=== PATIENT | female | born 1960 | race Caucasian/White ===

== ENCOUNTER 2021-08-09 11:31 | Outpatient (CLI) | payer MEDICARE, MEDICAID, SELFPAY ==
--- NOTE | 2021-08-09 11:48 | MM_ITS ---
WS: [id number] BILATERAL DIGITAL SCREENING MAMMOGRAPHY WITH CAD CLINICAL INFORMATION: SCREENING HISTORY: Screening mammogram. Left breast tenderness. COMPARISON: November 24, 2018 TECHNIQUE: Bilateral CC and MLO views. FINDINGS: Bilateral breast implants appear intact and unchanged. Scattered fibroglandular densities bilaterally. No suspicious focal mass, asymmetry, calcifications, or architectural distortion. No evidence of malignancy. MM/[id number] IMPRESSION: BI-RADS: 2-Benign FOLLOW UP: 1 Year Follow-up Recommend return to annual screening mammography.
== END 2021-08-09 11:32 | disposition home or self-care (01) ==
LOC: RADSHAW 11:43
PROVIDERS: Visit Provider Nurse Practitioner Family
DX: Z12.31 Encounter for screening mammogram for malignant neoplasm of breast (principal)
CPT/HCPCS: 77067

== ENCOUNTER 2022-09-18 13:17 | Outpatient (CLI) | payer MEDICARE, MEDICAID, SELFPAY ==
--- NOTE | 2022-09-18 13:27 | MM_ITS ---
WS: [id number] BILATERAL 3D TOMOSYNTHESIS DIGITAL SCREENING MAMMOGRAPHY WITH CAD CLINICAL INFORMATION: SCREENING HISTORY: Screening mammogram. No current complaints. COMPARISON: August 09, 2021 TECHNIQUE: Bilateral CC and MLO views. FINDINGS: Bilateral breast implants appear intact and unchanged Scattered fibroglandular densities bilaterally. No suspicious focal mass, asymmetry, calcifications, or architectural distortion. No evidence of malignancy. A few incidental punctate calcifications. MM/[id number] IMPRESSION: BI-RADS: 2-Benign FOLLOW UP: 1 Year Follow-up Recommend return to annual screening mammography.
== END 2022-09-18 13:18 | disposition home or self-care (01) ==
PROVIDERS: PCP Family Medicine; Visit Provider Registered Nurse
DX: Z12.31 Encounter for screening mammogram for malignant neoplasm of breast (principal)
CPT/HCPCS: 77063; 77067

== ENCOUNTER 2024-06-09 14:13 | Outpatient (CLI) | payer MEDICARE, MEDICAID, SELFPAY ==
--- NOTE | 2024-06-09 14:15 | MM_ITS ---
WS: [id number] Bilateral screening 3D tomosynthesis digital mammogram, 06/09/2024 2:15 PM Clinical Data: SCREENING Comparison: 09/18/2022, 08/09/2021, 11/24/2018, 10/21/2016, 01/09/2014. Findings: No spiculated masses or clustered calcifications are seen. There are no secondary signs of carcinoma . The bilateral augmentation mammoplasty implants are intact. MM/MM scr BI tomosynthesis [id number] Impression: Negative bilateral mammogram unchanged. Recommend annual screening mammograms. BIRADS: 1 - Negative. FOLLOW UP: 1 Year Follow-up DENSITY: There are scattered areas of fibroglandular density. The CAD tool or die drawing checker was used
== END 2024-06-09 14:14 | disposition home or self-care (01) ==
LOC: RAD 14:15
PROVIDERS: PCP Family Medicine; Visit Provider Nurse Practitioner Family
DX: Z12.31 Encounter for screening mammogram for malignant neoplasm of breast (principal); Z98.82 Breast implant status
CPT/HCPCS: 77063; 77067

== ENCOUNTER 2025-02-21 13:56 | Outpatient (CLI) | payer MEDICARE, SELFPAY ==
--- NOTE | 2025-02-21 14:14 | XR_ITS ---
WS: [id number] Lumbar spine, 6 views including both obliques in lateral images in neutral, flexion and extension position, 02/21/2025 Clinical Data: LUMBOSACRAL SPONDYLOSIS Comparison: Lumbar spine, 02/12/2017 Findings: No compression fractures or subluxation is seen. There is bilateral spondylolysis at L5-S1 unchanged. There is degenerative disc narrowing at L4-L5. On flexion and extension there is no instability. The transverse processes and SI joints are normal. There is an epidural stimulator with the generator in the posterior subcutaneous tissue and the leads ending in the lower thoracic space. There are cholecystectomy clips in the right upper quadrant. There are densities in the small bowel which may represent ingested tablets. XR/XR lumbar spine 6V w f/e [id number] Impression: 1. Degenerative disc narrowing L4-L5. 2. Bilateral spondylolysis at L5-S1. 3. No instability on flexion or extension.
== END 2025-02-21 13:57 | disposition home or self-care (01) ==
PROVIDERS: PCP Family Medicine; Visit Provider Student in an Organized Health Care Education/Training Program
DX: M47.817 Spondylosis without myelopathy or radiculopathy, lumbosacral region (principal); M48.061 Spinal stenosis, lumbar region without neurogenic claudication; Z96.82 Presence of neurostimulator; Z97.8 Presence of other specified devices
CPT/HCPCS: 72114